=== PATIENT | male | born 1990 | race Caucasian/White ===

== ENCOUNTER 2016-07-15 08:17 | Emergency (ER) | payer OTHER ==
[2016-07-15 08:32] VITALS: BP 114/80
[2016-07-15] MEDS ORDERED: HYDROmorphone 0.5 MG/0.5 ML Syringe IVPUSH ONE ×2 (08:44→10:17)
[2016-07-15] MEDS ORDERED: Ondansetron 4 MG/2 ML SDV IVPUSH ONE (08:44)
[2016-07-15] MEDS ORDERED: Sodium Chloride 0.9% 1,000 ML IV SCH ×2 (08:45→10:30)
--- NOTE | 2016-07-15 08:53 | EDM.PDOC ---
[id number] 07/15/16 08:35 Source: Reports: Patient, Family History Limitations: Reports: No limitations - History of Present Illness INITIAL COMMENTS - FREE TEXT/NARRATIVE: 25-year-old usually healthy male presents with a sudden onset of gastroenteritis symptoms for the last 6 hours. He's had very persistent watery diarrhea and vomiting for the past 6 hours along with intense abdominal cramping. He thought he had some "darker coffee ground" emesis initially but that has resolved and now it is clear. Some radiating pain to the back. No urinary symptoms. He feels lightheaded and "disoriented". He appears to be hyperventilating moderately. He has no surgical history Context: Denies: sick contact, bad/questionable food Associated Symptoms: Reports: back pain, diarrhea, malaise, nausea/vomiting. Denies: chest pain, shoulder pain - Related Data Allergies/ADRs: Allergies Allergy/AdvReac Type Severity Reaction Status Date / Time Penicillins Allergy Anaphylactic Verified 07/15/16 08:33 Shock Home Meds: Home Meds NK [No Known Home Meds] 07/15/16 [History] Past Medical History - Past Health History Medical/Surgical History: Denies Medical/Surgical History Social & Family History - Tobacco Use Smoking Status *Q: Current Some Day Smoker Years of Tobacco use: 12 Packs/Tins Daily: 0.2 - Caffeine Use Caffeine Use: Reports: Coffee, Energy drinks, Soda - Recreational Drug Use Recreational Drug Use: No ED ROS GENERAL - Review of Systems Review Of Systems: See Below Constitutional: Reports: chills, malaise HEENT: Reports: No symptoms Respiratory: Denies: Shortness of Breath Cardiovascular: Denies: Chest pain GI/Abdominal: Reports: Abdominal pain, Diarrhea, Nausea, Vomiting : Reports: no symptoms Skin: Reports: no symptoms Neurological: Reports: Dizziness Psychiatric: Reports: No symptoms ED EXAM, GI/ABD - Physical Exam Exam: See Below Exam Limited By: No limitations General Appearance: alert, anxious, moderate distress (Looks very uncomfortable) Eyes: bilateral: normal appearance (No jaundice) Respiratory/Chest: no respiratory distress, lungs clear Cardiovascular: regular rate, rhythm GI/Abdominal: soft, hypoactive bowel sounds, tenderness (Has some diffuse tenderness to palpation slightly worse in the lower abdomen but no focal tenderness) Extremities: normal inspection Neurological: alert Psychiatric: anxious Skin Exam: Warm, Dry Course - Vital Signs Last Recorded V/S: Last Vital Signs Temp 99.6 F 07/15/16 08:36 Pulse 105 H 07/15/16 08:36 Resp 17 07/15/16 08:36 BP 114/80 07/15/16 08:36 Pulse Ox 99 07/15/16 08:36 - Orders/Labs/Meds Labs: Laboratory Tests 07/15/16 07/15/16 Range/Units 08:53 08:53 WBC 14.4 H (4.5-11.0) K/uL RBC 5.82 (4.30-5.90) M/uL Hgb 17.7 H (12.0-15.0) g/dL Hct 50.6 (40.0-54.0) % MCV 87 (80-98) fL MCH 30 (27-31) pg MCHC 35 (32-36) % Plt Count 192 (150-400) K/uL Neut % (Auto) 91 H (36-66) % Lymph % (Auto) 3 L (24-44) % [place] % (Auto) 5 (2-6) % Eos % (Auto) 0 L (2-4) % Baso % (Auto) 0 (0-1) % Sodium 141 (140-148) mmol/L Potassium 4.4 (3.6-5.2) mmol/L Chloride 103 (100-108) mmol/L Carbon Dioxide 21 (21-32) mmol/L Anion Gap 17.1 H (5.0-14.0) mmol/L BUN 16 (7-18) mg/dL Creatinine 1.3 (0.8-1.3) mg/dL Est Cr Clr Drug Dosing 70.52 mL/min Estimated GFR (MDRD) > 60 (>60) Glucose 121 H (74-106) mg/dL Calcium 9.5 (8.5-10.1) mg/dL Total Bilirubin 1.2 H (0.2-1.0) mg/dL AST 30 (15-37) U/L ALT 30 (12-78) U/L Alkaline Phosphatase 72 (46-116) U/L Total Protein 8.7 H (6.4-8.2) g/dL Albumin 5.0 (3.4-5.0) g/dL Globulin 3.7 H (2.3-3.5) g/dL Albumin/Globulin Ratio 1.4 (1.2-2.2) Amylase 67 (25-115) U/L Lipase 99 (73-393) U/L Meds: Medications Discontinued Medications Generic Name Dose Route Start Last Admin Trade Name Ryq PRN Reason Stop Dose Admin Hydromorphone HCl 0.5 mg 07/15/16 08:44 07/15/16 08:59 Dilaudid IVPUSH 07/15/16 08:45 0.5 mg ONETIME ONE Administration Hydromorphone HCl 0.5 mg 07/15/16 10:17 07/15/16 10:22 Dilaudid IVPUSH 07/15/16 10:18 0.5 mg ONETIME ONE Administration Sodium Chloride 1,000 mls @ 1,000 mls/hr 07/15/16 08:45 07/15/16 08:56 Normal Saline IV 1,000 mls/hr ASDIRECTED LILLI Administration Sodium Chloride 1,000 mls @ 1,000 mls/hr 07/15/16 10:30 07/15/16 10:22 Normal Saline IV 1,000 mls/hr ASDIRECTED LILLI Administration Ondansetron HCl 4 mg 07/15/16 08:44 07/15/16 08:59 Zofran IVPUSH 07/15/16 08:45 4 mg ONETIME ONE Administration - Re-Assessments/Exams Free Text/Narrative Re-Assessment/Exam: 07/15/16 08:53 IV was started, patient was given 1 L normal saline along with 0.5 of Dilaudid 4 mg of Zofran IV. CBC, CMP, amylase and lipase were obtained. His illness pattern fits several other patients we have seen recently. 07/15/16 10:11 Patient had mild to moderate improvement after the medications, nausea resolved but his abdominal cramping persisted. He was given an additional 0.5 mg of Dilaudid and an additional 1 L of normal saline. 07/15/16 11:39 Patient continued to improve. He was discharged in good condition with 5 additional doses of Zofran to use as needed. He can return anytime if worsening or concerns. Departure - Departure Time of Disposition: 11:56 Disposition: Home, Self-Care 01 Condition: good Clinical Impression: Gastroenteritis Instructions: Viral Gastroenteritis, Adult, [id number] Referrals: PCP,None [Primary Care Provider] - Forms: ED Department Discharge Care Plan Goals: Rest today, increase diet slowly as tolerated concentrating on fluids and use Zofran for nausea and vomiting as needed. Return anytime if worsening or concerns.
== END 2016-07-15 11:56 | disposition home or self-care (01) ==
LOC: JP.ED 08:17
DX: K52.9 Noninfective gastroenteritis and colitis, unspecified (principal); F17.210 Nicotine dependence, cigarettes, uncomplicated; Z88.0 Allergy status to penicillin
CPT/HCPCS: 36415; 80053; 82150; 83690; 85025; 96361; 96374; 96375; 96376; 99284; J1170; J2405; J7040

== ENCOUNTER 2018-01-18 12:52 | Emergency (ER) | payer OTHER ==
[2018-01-18 13:16] VITALS: BP 118/79
--- NOTE | 2018-01-18 13:57 | EDM.PDOC ---
ED HPI GENERAL MEDICAL PROBLEM - General Chief Complaint: Respiratory Problem Stated Complaint: COUGHING UP BLOOD Time Seen by Provider: 01/18/18 13:20 Source of Information: Reports: Patient History Limitations: Reports: No Limitations - History of Present Illness INITIAL COMMENTS - FREE TEXT/NARRATIVE: 27 yo male presents with concerns of blood tinged sputum Reports several days of cough, as well as nose bleed yesterday Yesterday noted tinge of blood in his sputum Several more episodes today No clots or gross blood No dyspnea or chest pain No hx of clot or clotting/bleeding disorder Recently had CT for ongoing abdominal pain, 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) Patient had deferred any further work up for this, but reports his PCP warned him to go to the ED if he had any hemoptysis No blood thinner or meds denies Pain Score (Numeric/FACES): 0 - Related Data Allergies Allergy/AdvReac Type Severity Reaction Status Date / Time Penicillins Allergy Anaphylactic Verified 01/18/18 13:03 Shock Home Meds: Home Meds NK [No Known Home Meds] 07/15/16 [History] Past Medical History - Past Health History Medical/Surgical History: Denies Medical/Surgical History Cardiovascular History: Reports: Other (See Below) Other Cardiovascular History: Indent in chest Musculoskeletal History: Reports: Fracture Other Musculoskeletal History: clavicle Dermatologic History: Reports: Eczema - Infectious Disease History Infectious Disease History: Reports: Chicken Pox Social & Family History - Tobacco Use Smoking Status *Q: Current Every Day Smoker Years of Tobacco use: 19 Packs/Tins Daily: 0.5 Used Tobacco, but Quit: No Second Hand Smoke Exposure: No - Caffeine Use Caffeine Use: Reports: Coffee, Energy Drinks, Soda - Alcohol Use Days Per Week of Alcohol Use: 0 - Recreational Drug Use Recreational Drug Use: No ED ROS GENERAL - Review of Systems Review Of Systems: See Below Constitutional: Reports: No Symptoms. Denies: Fever, Chills HEENT: Reports: No Symptoms Respiratory: Reports: Cough, Hemoptysis. Denies: Shortness of Breath, Pleuritic Chest Pain Cardiovascular: Denies: Chest Pain, Dyspnea on Exertion Endocrine: Reports: No Symptoms GI/Abdominal: Denies: Abdominal Pain, Black Stool, Bloody Stool : Reports: No Symptoms Musculoskeletal: Reports: No Symptoms Skin: Reports: No Symptoms Neurological: Denies: Dizziness, Headache Psychiatric: Reports: No Symptoms Hematologic/Lymphatic: Reports: No Symptoms Immunologic: Reports: No Symptoms ED EXAM, GENERAL - Physical Exam Exam: See Below Exam Limited By: No Limitations General Appearance: Alert, WD/WN, No Apparent Distress Eye Exam: Bilateral Eye: PERRL Ears: Normal External Exam Nose: Normal Inspection Throat/Mouth: Normal Inspection Head: Atraumatic, Normocephalic Neck: Supple, Non-Tender Respiratory/Chest: No Respiratory Distress, Lungs Clear, Normal Breath Sounds Cardiovascular: Regular Rate, Rhythm. No: No Edema GI/Abdominal: Normal Bowel Sounds, Soft, Non-Tender Back Exam: Normal Inspection Extremities: Normal Inspection Neurological: Alert, Oriented, CN II-XII Intact Psychiatric: Normal Affect Skin Exam: Warm, Dry Course - Vital Signs Last Recorded V/S: Last Vital Signs Temp 36.4 C 01/18/18 13:14 Pulse 99 01/18/18 13:14 Resp 16 01/18/18 13:14 BP 118/79 01/18/18 13:14 Pulse Ox 99 01/18/18 13:14 - Re-Assessments/Exams Free Text/Narrative Re-Assessment/Exam: 27 yo presents with concerns of blood tinged sputum in setting of several days of viral URI symptoms No large volume hemoptysis, no dyspnea, no chest pain, otherwise feels well Recent reports recent CXR which had no abnormality Symptoms consistent with mucosal irritation in setting of bronchitis and/or 2/2 to his recent epistaxsis Reviewed PCP record, no documentation of conversation regarding hemoptysis I cannot make the connection to his mesenteric abnormality, brief lit search unrevealing Regardless, we have an alternative explanation with his symptoms consistent with resp infection Safe for discharge, asked him to return for worsening. 01/18/18 14:01 Departure - Departure Time of Disposition: 13:51 Disposition: Home, Self-Care 01 Clinical Impression: Blood-tinged sputum - Discharge Information *PRESCRIPTION DRUG MONITORING PROGRAM REVIEWED*: No *COPY OF PRESCRIPTION DRUG MONITORING REPORT IN PATIENT JULIA: No Instructions: Hemoptysis, [id number] Referrals: PCP,None [Primary Care Provider] - Additional Instructions: As discussed, please return for worsening of your symptoms We encourage you to follow up with your primary doctor
== END 2018-01-18 14:25 | disposition home or self-care (01) ==
LOC: JP.ED 12:52
DX: R04.2 Hemoptysis (principal); F17.210 Nicotine dependence, cigarettes, uncomplicated; Z88.0 Allergy status to penicillin
CPT/HCPCS: 99283

== ENCOUNTER 2018-08-07 21:09 | Emergency (ER) | payer OTHER ==
--- NOTE | 2018-08-07 21:39 | EDM.PDOC ---
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 He did do a ekg and he had inverted t waves in the AVR and in v1. He has a hr of 95. He has had pain that he rates at a 3. Onset: Other ( started 2 days ago. ) Duration: Hour(s): Location: Reports: Chest Quality: Reports: Pressure, Other ( pt had a squeezing sensation in his chest. He felt like his heart was rapid. ) Middle Chest Pain Score (Numeric/FACES): 4 - Related Data Allergies Allergy/AdvReac Type Severity Reaction Status Date / Time Cephalosporins Allergy Chest Pain Verified 08/07/18 21:41 Penicillins Allergy Anaphylactic Verified 01/18/18 13:03 Shock Home Meds: Home Meds Clindamycin HCl [Cleocin] 300 mg PO Q8H 08/07/18 [History] Cyclobenzaprine [Flexeril] 10 mg PO Q6H PRN 08/07/18 [History] Past Medical History - Past Health History Medical/Surgical History: Denies Medical/Surgical History Cardiovascular History: Reports: Other (See Below) Other Cardiovascular History: Indent in chest Musculoskeletal History: Reports: Fracture Other Musculoskeletal History: clavicle Dermatologic History: Reports: Eczema - Infectious Disease History Infectious Disease History: Reports: Chicken Pox Social & Family History - Caffeine Use Caffeine Use: Reports: Coffee, Energy Drinks, Soda ED ROS GENERAL - Review of Systems Review Of Systems: See Below Constitutional: Reports: No Symptoms HEENT: Reports: Other (pt had a previous strept infection. He has a reoccurence at this time. He is on clindomycin. He has been drinking fluids well. He developed some chest pain and was concered about that tonight. He did an ekg. He had a rapid heat beat and some changes that were concerning. ) Respiratory: Reports: No Symptoms Cardiovascular: Reports: Chest Pain, Other (pt does not have chest wall tenderness. ) Endocrine: Reports: No Symptoms GI/Abdominal: Reports: No Symptoms : Reports: No Symptoms Musculoskeletal: Reports: No Symptoms Skin: Reports: No Symptoms ED EXAM, GENERAL - Physical Exam Exam: See Below Free Text/Narrative:: pt arrived with chest pain he rated at a 4-5. He did not feel sob and this did not get worse when he took a deep breath. Exam Limited By: No Limitations General Appearance: Alert, Anxious, Moderate Distress Ears: Normal TMs Nose: Normal Inspection Throat/Mouth: Normal Inspection Head: Atraumatic Neck: Normal Inspection Respiratory/Chest: No Respiratory Distress Cardiovascular: Regular Rate, Rhythm, Tachycardia, Other (pt has a heart rate of 130 when he gets up and moves around. ) GI/Abdominal: Soft, Non-Tender (Male) Exam: Deferred Rectal (Males) Exam: Deferred Back Exam: Normal Inspection Extremities: Normal Inspection Neurological: Alert, Oriented, Normal Cognition Psychiatric: Normal Affect Course - Vital Signs Last Recorded V/S: Last Vital Signs Temp 36.6 C 08/07/18 21:56 Pulse 65 08/08/18 00:20 Resp 14 08/08/18 00:20 BP 128/74 08/08/18 00:20 Pulse Ox 99 08/08/18 00:20 - Orders/Labs/Meds Labs: Laboratory Tests 08/07/18 08/07/18 08/07/18 Range/Units 21:25 21:25 21:25 WBC 5.2 (4.5-11.0) K/uL RBC 5.10 (4.30-5.90) M/uL Hgb 15.4 H D (12.0-15.0) g/dL Hct 45.1 (40.0-54.0) % MCV 88 (80-98) fL MCH 30 (27-31) pg MCHC 34 (32-36) % Plt Count 182 (150-400) K/uL Neut % (Auto) 48 (36-66) % Lymph % (Auto) 37 (24-44) % [place] % (Auto) 11 H (2-6) % Eos % (Auto) 0 L (2-4) % Baso % (Auto) 3 H (0-1) % Sodium 140 (140-148) mmol/L Potassium 3.6 (3.6-5.2) mmol/L Chloride 101 (100-108) mmol/L Carbon Dioxide 28 (21-32) mmol/L Anion Gap 11.1 (5.0-14.0) mmol/L BUN 11 (7-18) mg/dL Creatinine 1.1 (0.8-1.3) mg/dL Est Cr Clr Drug Dosing 86.97 mL/min Estimated GFR (MDRD) > 60 (>60) Glucose 109 H (74-106) mg/dL Lactic Acid (0.4-2.0) mmol/L Calcium 9.1 (8.5-10.1) mg/dL Total Bilirubin 0.6 (0.2-1.0) mg/dL AST 21 (15-37) U/L ALT 18 (12-78) U/L Alkaline Phosphatase 58 (46-116) U/L Troponin I < 0.017 (0.000-0.056) ng/mL Total Protein 7.7 (6.4-8.2) g/dL Albumin 3.9 (3.4-5.0) g/dL Globulin 3.8 H (2.3-3.5) g/dL Albumin/Globulin Ratio 1.0 L (1.2-2.2) TSH, Ultra Sensitive (0.358-3.740) uIU/mL Monoscreen (NEGATIVE) 08/07/18 08/07/18 08/07/18 Range/Units 21:55 23:11 23:11 WBC (4.5-11.0) K/uL RBC (4.30-5.90) M/uL Hgb (12.0-15.0) g/dL Hct (40.0-54.0) % MCV (80-98) fL MCH (27-31) pg MCHC (32-36) % Plt Count (150-400) K/uL Neut % (Auto) (36-66) % Lymph % (Auto) (24-44) % [place] % (Auto) (2-6) % Eos % (Auto) (2-4) % Baso % (Auto) (0-1) % Sodium (140-148) mmol/L Potassium (3.6-5.2) mmol/L Chloride (100-108) mmol/L Carbon Dioxide (21-32) mmol/L Anion Gap (5.0-14.0) mmol/L BUN (7-18) mg/dL Creatinine (0.8-1.3) mg/dL Est Cr Clr Drug Dosing mL/min Estimated GFR (MDRD) (>60) Glucose (74-106) mg/dL Lactic Acid 1.0 (0.4-2.0) mmol/L Calcium (8.5-10.1) mg/dL Total Bilirubin (0.2-1.0) mg/dL AST (15-37) U/L ALT (12-78) U/L Alkaline Phosphatase (46-116) U/L Troponin I (0.000-0.056) ng/mL Total Protein (6.4-8.2) g/dL Albumin (3.4-5.0) g/dL Globulin (2.3-3.5) g/dL Albumin/Globulin Ratio (1.2-2.2) TSH, Ultra Sensitive 1.640 (0.358-3.740) uIU/mL Monoscreen Negative (NEGATIVE) Meds: Medications Discontinued Medications Generic Name Dose Route Start Last Admin Trade Name Freq PRN Reason Stop Dose Admin Sodium Chloride 1,000 mls @ 999 mls/hr 08/07/18 23:00 08/07/18 23:02 Normal Saline IV 999 mls/hr ASDIRECTED LILLI Administration Ketorolac Tromethamine 30 mg 08/07/18 22:55 08/07/18 23:06 Toradol IVPUSH 08/07/18 22:56 30 mg ONETIME ONE Administration Ondansetron HCl 4 mg 08/07/18 23:16 08/07/18 23:20 Zofran IVPUSH 08/07/18 23:17 4 mg ONETIME ONE Administration - Re-Assessments/Exams Free Text/Narrative Re-Assessment/Exam: 08/08/18 00:35 pt had a ekg which showed a fasicular block. His rate was in the 90s. His trop was normal, tsh was normal labs looked like he was on the dry side. When he moved around his pulse did go up. Pt was given a liter of fluid and his pulse has come down and he is more comfortable. Departure - Departure Time of Disposition: 00:46 Disposition: Home, Self-Care 01 Condition: Fair Clinical Impression: Dehydration, Atypical chest pain Instructions: Nonspecific Chest Pain, [id number], Dehydration, Adult Referrals: PCP,None [Primary Care Provider] - Forms: ED Department Discharge Care Plan Goals: low activity for the next 2 days. , push fluids, tylenol and motrin for pain, rtc if the chest pain should get alot worse.
--- NOTE | 2018-08-07 22:31 | CRLCR ---
INDICATION: Chest pain TECHNIQUE: Chest radiograph 1 view COMPARISON: 01/25/2019 FINDINGS: Mediastinum: The mediastinum is normal in appearance. The heart silhouette is normal in size and morphology. Lung: Both lungs are unremarkable in appearance. No sign of pleural effusion seen. No pneumothorax is identified. Musculoskeletal: Unremarkable for age. IMPRESSION: 1. No acute cardiopulmonary disease is seen. Dictated by: Ruel Hammer MD @ 08/07/2018 22:29:37 (Electronically Signed)
[2018-08-07] MEDS ORDERED: Ketorolac 30 MG/ML SDV IVPUSH ONE (22:55)
[2018-08-07] MEDS ORDERED: Sodium Chloride 0.9% 1,000 ML IV SCH (23:00)
[2018-08-07] MEDS ORDERED: Ondansetron 4 MG/2 ML SDV IVPUSH ONE (23:16)
[2018-08-08 00:43] VITALS: BP 128/74
== END 2018-08-08 00:56 | disposition home or self-care (01) ==
LOC: JP.ED 21:09
DX: R07.89 Other chest pain (principal); I44.4 Left anterior fascicular block; E86.0 Dehydration; J02.0 Streptococcal pharyngitis; Z88.1 Allergy status to other antibiotic agents; Z88.0 Allergy status to penicillin; Z79.2 Long term (current) use of antibiotics
CPT/HCPCS: 36415; 71045; 80053; 83605; 84443; 84484; 85025; 86308; 93005; 96361; 96374; 96375; 99285; J1885; J2405; J7030

== ENCOUNTER 2019-02-18 19:17 | Emergency (ER) | payer OTHER ==
[2019-02-18 19:46] VITALS: BP 129/83; PULSE 83
--- NOTE | 2019-02-18 21:33 | EDM.PDOC ---
ED HPI GENERAL MEDICAL PROBLEM - General Chief Complaint: General Stated Complaint: FAST HEART RATE, DIZZY, LIGHT HEADED Time Seen by Provider: 02/18/19 19:50 Source of Information: Reports: Patient History Limitations: Reports: No Limitations - History of Present Illness INITIAL COMMENTS - FREE TEXT/NARRATIVE: pt arrived stating that he was driving from [place] and talking to a friend. He then developed visual symptoms and he felt like he could not focus. . He had tingling in all extremities but definitely worse in the lower extremities. Onset: Today, Sudden, Other (pt was driving from [place]. ) Duration: Hour(s):, Getting Worse Location: Reports: Head, Face, Other ( affectedall extremities at the time with the tingling. ) Associated Symptoms: Reports: Weakness, Other (pt felt like he was flying through the air. ) - Related Data Allergies Allergy/AdvReac Type Severity Reaction Status Date / Time Cephalosporins Allergy Chest Pain Verified 08/07/18 21:41 Penicillins Allergy Anaphylactic Verified 01/18/18 13:03 Shock Past Medical History - Past Health History Medical/Surgical History: Denies Medical/Surgical History Cardiovascular History: Reports: Other (See Below) Other Cardiovascular History: Indent in chest Musculoskeletal History: Reports: Fracture Other Musculoskeletal History: clavicle Dermatologic History: Reports: Eczema - Infectious Disease History Infectious Disease History: Reports: Chicken Pox Social & Family History - Tobacco Use Smoking Status *Q: Current Every Day Smoker Years of Tobacco use: 20 Packs/Tins Daily: 0.2 - Caffeine Use Caffeine Use: Reports: Coffee, Soda Caffeine Use Comment: 4-5 cups of coffee per day - Recreational Drug Use Recreational Drug Use: No ED ROS GENERAL - Review of Systems Review Of Systems: See Below Constitutional: Reports: No Symptoms HEENT: Reports: Vision Change Respiratory: Reports: No Symptoms Cardiovascular: Reports: No Symptoms Endocrine: Reports: No Symptoms GI/Abdominal: Reports: No Symptoms : Reports: No Symptoms Musculoskeletal: Reports: No Symptoms Skin: Reports: No Symptoms ED EXAM, GENERAL - Physical Exam Exam: See Below Free Text/Narrative:: pt was driving and developed visual blurring, pressure in his head. He felt like he was flying through the air. He is tingling in his lower extremities. On arrival he still had the tingling. He is under stress but he does not feel that it is more than usual. Exam Limited By: No Limitations General Appearance: Alert, Anxious, Moderate Distress, Other (pupils equal and reactive. ) Ears: Normal TMs Nose: Normal Inspection Throat/Mouth: Normal Inspection Head: Atraumatic Neck: Normal Inspection Respiratory/Chest: No Respiratory Distress Cardiovascular: Regular Rate, Rhythm GI/Abdominal: Soft, Non-Tender (Male) Exam: Deferred Rectal (Males) Exam: Deferred Back Exam: Normal Inspection Extremities: Normal Inspection Neurological: Alert, Oriented, Normal Cognition Psychiatric: Normal Affect Course - Vital Signs Last Recorded V/S: Last Vital Signs Temp 36.6 C 02/18/19 20:05 Pulse 83 02/18/19 20:05 Resp 14 02/18/19 20:05 BP 129/83 02/18/19 20:05 Pulse Ox 98 02/18/19 20:05 - Orders/Labs/Meds Labs: Laboratory Tests 02/18/19 02/18/19 02/18/19 Range/Units 19:49 19:50 19:50 WBC 6.2 (4.5-11.0) K/uL RBC 4.95 (4.30-5.90) M/uL Hgb 15.5 H (12.0-15.0) g/dL Hct 44.6 (40.0-54.0) % MCV 90 (80-98) fL MCH 31 (27-31) pg MCHC 35 (32-36) % Plt Count 179 (150-400) K/uL Neut % (Auto) 62 (36-66) % Lymph % (Auto) 29 (24-44) % [place] % (Auto) 8 H (2-6) % Eos % (Auto) 1 L (2-4) % Baso % (Auto) 1 (0-1) % Sodium (140-148) mmol/L Potassium (3.6-5.2) mmol/L Chloride (100-108) mmol/L Carbon Dioxide (21-32) mmol/L Anion Gap (5.0-14.0) mmol/L BUN (7-18) mg/dL Creatinine (0.8-1.3) mg/dL Est Cr Clr Drug Dosing mL/min Estimated GFR (MDRD) (>60) Glucose (74-106) mg/dL Calcium (8.5-10.1) mg/dL Total Bilirubin (0.2-1.0) mg/dL AST (15-37) U/L ALT (12-78) U/L Alkaline Phosphatase (46-116) U/L Total Protein (6.4-8.2) g/dL Albumin (3.4-5.0) g/dL Globulin (2.3-3.5) g/dL Albumin/Globulin Ratio (1.2-2.2) TSH, Ultra Sensitive 3.501 (0.358-3.740) uIU/mL Urine Color Yellow (YELLOW) Urine Appearance Clear (CLEAR) Urine pH 7.0 (5.0-8.0) Ur Specific [place] 1.020 (1.008-1.030) Urine Protein Negative (NEGATIVE) mg/dL Urine Glucose (UA) Negative (NEGATIVE) mg/dL Urine Ketones Negative (NEGATIVE) mg/dL Urine Occult Blood Negative (NEGATIVE) Urine Nitrite Negative (NEGATIVE) Urine Bilirubin Negative (NEGATIVE) Urine Urobilinogen 0.2 (0.2-1.0) EU/dL Ur Leukocyte Esterase Negative (NEGATIVE) Urine RBC Not seen (0-5) Urine WBC Not seen (0-5) Ur Epithelial Cells Rare Amorphous Sediment Few Urine Bacteria Not seen Urine Mucus Not seen 02/18/19 Range/Units 19:50 WBC (4.5-11.0) K/uL RBC (4.30-5.90) M/uL Hgb (12.0-15.0) g/dL Hct (40.0-54.0) % MCV (80-98) fL MCH (27-31) pg MCHC (32-36) % Plt Count (150-400) K/uL Neut % (Auto) (36-66) % Lymph % (Auto) (24-44) % [place] % (Auto) (2-6) % Eos % (Auto) (2-4) % Baso % (Auto) (0-1) % Sodium 141 (140-148) mmol/L Potassium 3.6 (3.6-5.2) mmol/L Chloride 103 (100-108) mmol/L Carbon Dioxide 26 (21-32) mmol/L Anion Gap 11.7 (5.0-14.0) mmol/L BUN 10 (7-18) mg/dL Creatinine 1.1 (0.8-1.3) mg/dL Est Cr Clr Drug Dosing 86.47 mL/min Estimated GFR (MDRD) > 60 (>60) Glucose 92 (74-106) mg/dL Calcium 9.2 (8.5-10.1) mg/dL Total Bilirubin 0.4 (0.2-1.0) mg/dL AST 21 (15-37) U/L ALT 20 (12-78) U/L Alkaline Phosphatase 63 (46-116) U/L Total Protein 7.4 (6.4-8.2) g/dL Albumin 4.3 (3.4-5.0) g/dL Globulin 3.1 (2.3-3.5) g/dL Albumin/Globulin Ratio 1.4 (1.2-2.2) TSH, Ultra Sensitive (0.358-3.740) uIU/mL Urine Color (YELLOW) Urine Appearance (CLEAR) Urine pH (5.0-8.0) Ur Specific [place] (1.008-1.030) Urine Protein (NEGATIVE) mg/dL Urine Glucose (UA) (NEGATIVE) mg/dL Urine Ketones (NEGATIVE) mg/dL Urine Occult Blood (NEGATIVE) Urine Nitrite (NEGATIVE) Urine Bilirubin (NEGATIVE) Urine Urobilinogen (0.2-1.0) EU/dL Ur Leukocyte Esterase (NEGATIVE) Urine RBC (0-5) Urine WBC (0-5) Ur Epithelial Cells Amorphous Sediment Urine Bacteria Urine Mucus - Re-Assessments/Exams Free Text/Narrative Re-Assessment/Exam: 02/24/19 07:13 pt gradually improved. His ekg was unchanged. He had normal lab work. He has labs pending at the clinic. He needs to continue to follow with Dr Calhoun. He may need a neurology consult. He already is set up for a edrocrinoly appt. He Has had some very low bs. His sugar today is 90. Pt has just had a normal cat scan of the head. If some of the symptoms persist he may need a Mri 02/24/19 07:15 Departure - Departure Time of Disposition: 21:31 Disposition: Home, Self-Care 01 Condition: Fair Clinical Impression: History of hypoglycemia, Visual changes - Discharge Information Instructions: Visual Disturbances Referrals: PCP,None [Primary Care Provider] - Forms: ED Department Discharge Care Plan Goals: continue to follow up with Dr Mcclure, consider neurolgy consult, keep appt for endrocrinoly consult.
== END 2019-02-18 21:48 | disposition home or self-care (01) ==
LOC: JP.ED 19:17
DX: H53.9 Unspecified visual disturbance (principal); F17.210 Nicotine dependence, cigarettes, uncomplicated; Z86.39 Personal history of other endocrine, nutritional and metabolic disease; Z88.1 Allergy status to other antibiotic agents; Z88.0 Allergy status to penicillin
CPT/HCPCS: 36415; 80053; 81001; 84443; 85025; 93005; 99284-25

== ENCOUNTER 2019-05-03 17:45 | Emergency (ER) | payer BC, OTHER ==
[2019-05-03 17:58] VITALS: BP 117/72; PULSE 64
--- NOTE | 2019-05-03 18:12 | EDM.PDOC ---
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 Here for evaluation. Last tetanus 10 yrs ago. Has a little numbness distal to the wound. 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: Other (see below) (none) - Related Data Allergies Allergy/AdvReac Type Severity Reaction Status Date / Time Cephalosporins Allergy Chest Pain Verified 05/03/19 18:07 Penicillins Allergy Anaphylactic Verified 05/03/19 18:07 Shock Home Meds: Home Meds NK [No Known Home Meds] 05/03/19 [History] Past Medical History - Past Health History Medical/Surgical History: Denies Medical/Surgical History Cardiovascular History: Reports: Other (See Below) Other Cardiovascular History: Indent in chest Musculoskeletal History: Reports: Fracture Other Musculoskeletal History: clavicle Dermatologic History: Reports: Eczema - Infectious Disease History Infectious Disease History: Reports: Chicken Pox Social & Family History - Caffeine Use Caffeine Use: Reports: Coffee, Soda Caffeine Use Comment: 4-5 cups of coffee per day ED ROS GENERAL - Review of Systems Review Of Systems: See Below Constitutional: Reports: No Symptoms Skin: Reports: Wound (R hand) Neurological: Reports: Numbness (just distal to the laceration. ) ED EXAM, SKIN/RASH Exam: See Below Exam Limited By: No Limitations General Appearance: Alert, WD/WN, No Apparent Distress Extremities: Normal Inspection, Normal Range of Motion, Non-Tender, No Pedal Edema Neurological: Alert, Oriented, CN II-XII Intact, Normal Cognition, No Motor/ Sensory Deficits Psychiatric: Normal Affect, Normal Mood Skin: Warm, Dry, Normal Color, No Rash, Wound/Incision (1.7 cm linear over the R MC jt. ) Location, Skin: Upper Extremity, Right Characteristics: Linear Associated features: Tenderness. No: Warmth, Induration, Lymphangitis, Inflammation ED SKIN PROCEDURES - Laceration/Wound Repair Right Hand Appearance: Subcutaneous, Linear, Mildly Contaminated, Other (wound over the MC joint of the R index finger. ) Distal NVT: No Tendon Injury, Other (subjective numbness of the medial index finger) Anesthetic Type: Local Local Anesthesia - Lidocaine (Xylocaine): 1% Plain Local Anesthetic Volume: 2cc Skin Prep: Saline, Other (Griselda dish soap to remove grease) Exploration/Debridement/Repair: Wound Explored Closed with: Sutures Lac/Wound length In cm: 1.5 Suture Size: 5-0 # of Sutures: 3 Suture Type: Nylon, Interrupted, Simple, Mattress (one vertical mattress) Drain Placement: No Sterile Dressing Applied: Nurse Tetanus Status Addressed: Yes Complications: No Course - Vital Signs Last Recorded V/S: Last Vital Signs Temp 36.0 C 05/03/19 18:13 Pulse 64 05/03/19 18:13 Resp 16 05/03/19 18:13 BP 117/72 05/03/19 18:13 Pulse Ox 98 05/03/19 18:13 - Orders/Labs/Meds Orders: Active Orders 24 hr Category Date Time Status Vaccines to be Administered [RC] PER UNIT ROUTINE Care 05/03/19 18:30 Ordered Diphth,Pertuss(Acell),Tet Vac [Adacel] Med 05/03/19 18:30 Once 0.5 ml IM .ONCE ONE Meds: Medications Discontinued Medications Generic Name Dose Route Start Last Admin Trade Name Ryq PRN Reason Stop Dose Admin Lidocaine HCl 5 ml 05/03/19 18:06 Xylocaine-Mpf 1% INJECT 05/03/19 18:07 ONETIME ONE Departure - Departure Time of Disposition: 18:35 Disposition: Home, Self-Care 01 Condition: Good Clinical Impression: Laceration of right hand Qualifiers: Encounter type: initial encounter Foreign body presence: without foreign body Qualified Code(s): S61.411A - Laceration without foreign body of right hand, initial encounter - Discharge Information *PRESCRIPTION DRUG MONITORING PROGRAM REVIEWED*: No *COPY OF PRESCRIPTION DRUG MONITORING REPORT IN PATIENT JULIA: No Instructions: Sutured Wound Care, [id number] Referrals: PCP,None [Primary Care Provider] - Forms: ED Department Discharge Additional Instructions: Clean wound with soap and water twice daily. Dry. Apply Bacitracin ointment and a new dressing. Recheck for signs of infection. Stitches out in about 9 days. Acetaminophen as needed for pain relief. Sepsis Event Note - Focused Exam Vital Signs: Vital Signs Temp Pulse Resp BP Pulse Ox 05/03/19 18:13 36.0 C 64 16 117/72 98 05/03/19 17:57 36.0 C 64 16 117/72 98 Date Exam was Performed: 05/03/19 Time Exam was Performed: 18:30 - My Orders Last 24 Hours: My Active Orders 05/03/19 18:30 Vaccines to be Administered [RC] PER UNIT ROUTINE Diphth,Pertuss(Acell),Tet Vac [Adacel] 0.5 ml IM .ONCE ONE - Assessment/Plan Last 24 Hours: My Active Orders 05/03/19 18:30 Vaccines to be Administered [RC] PER UNIT ROUTINE Diphth,Pertuss(Acell),Tet Vac [Adacel] 0.5 ml IM .ONCE ONE
[2019-05-03] MEDS ORDERED: Diphtheria,Pertussis(Acell),Tetanus Vaccine 0.5 ML SDV IM ONE (18:30)
[2019-05-03] MEDS ORDERED: Diphtheria,Pertussis(Acell),Tetanus Vaccine 0.5 ML SDV ONE (18:31)
== END 2019-05-03 18:45 | disposition home or self-care (01) ==
LOC: JP.ED 17:45
DX: S61.411A Laceration without foreign body of right hand, initial encounter (principal); Z23 Encounter for immunization; Z88.0 Allergy status to penicillin; Z88.1 Allergy status to other antibiotic agents; W26.8XXA Contact with other sharp object(s), not elsewhere classified, initial encounter
CPT/HCPCS: 12001; 90471; 90715; 99282; J2001

== ENCOUNTER 2019-09-26 13:11 | Emergency (ER) | payer BC ==
[2019-09-26 13:34] VITALS: BP 124/81; PULSE 82
--- NOTE | 2019-09-26 13:55 | EDM.PDOC ---
ED HPI GENERAL MEDICAL PROBLEM - General Chief Complaint: Respiratory Problem Stated Complaint: SOB, PRESSURE IN ABDOMEN Time Seen by Provider: 09/26/19 13:40 Source of Information: Reports: Patient History Limitations: Reports: No Limitations - History of Present Illness INITIAL COMMENTS - FREE TEXT/NARRATIVE: 28-year-old male with a known history of pectus excavatum, also irritable bowel syndrome presents with 1 to 2 months of intermittent chest pressure, unable to take a full breath, and upper abdominal pressure and fullness. No fevers or chills, no weight loss. Denies nausea or vomiting. He went into the clinic to talk about his symptoms and they sent him to the emergency room. He appears comfortable and is relatively asymptomatic at this time. Onset: Unknown/Unsure (Symptoms have been ongoing for several months) Associated Symptoms: Reports: Chest Pain (Intermittent chest pressure, not pain) , Weakness (Has been developing sudden onset of weakness in his arms and legs which lasts 5 to 10 minutes then resolves). Denies: Confusion, Nausea/Vomiting , Shortness of Breath (Not short of breath but feels like he cannot take a full breath) chest and upper abdomen Pain Score (Numeric/FACES): 4 - Related Data Allergies Allergy/AdvReac Type Severity Reaction Status Date / Time Penicillins Allergy Severe Anaphylactic Verified 09/26/19 13:33 Shock Cephalosporins Allergy Chest Pain Verified 09/26/19 13:33 Home Meds: Home Meds NK [No Known Home Meds] 05/03/19 [History] Past Medical History - Past Health History Medical/Surgical History: Denies Medical/Surgical History HEENT History: Reports: None Cardiovascular History: Reports: Other (See Below) Other Cardiovascular History: Indent in chest Respiratory History: Reports: None Gastrointestinal History: Reports: Irritable Bowel Syndrome Genitourinary History: Reports: None Musculoskeletal History: Reports: Fracture Other Musculoskeletal History: clavicle Dermatologic History: Reports: Eczema - Infectious Disease History Infectious Disease History: Reports: Chicken Pox Social & Family History - Tobacco Use Smoking Status *Q: Current Every Day Smoker Years of Tobacco use: 15 Packs/Tins Daily: 0.2 - Caffeine Use Caffeine Use: Reports: Coffee, Soda Caffeine Use Comment: 4-5 cups of coffee per day - Recreational Drug Use Recreational Drug Use: No ED ROS GENERAL - Review of Systems Review Of Systems: See Below Constitutional: Reports: Malaise. Denies: Fever, Chills HEENT: Reports: No Symptoms Respiratory: Reports: Other (As described in HPI) Cardiovascular: Reports: Other (As described in HPI) GI/Abdominal: Reports: Other (Upper abdominal pressure, early satiety) : Reports: No Symptoms Musculoskeletal: Reports: Other (Intermittent weakness of the extremities, no pain) Skin: Reports: No Symptoms Neurological: Denies: Dizziness, Headache, Syncope ED EXAM, GENERAL - Physical Exam Exam: See Below Exam Limited By: No Limitations General Appearance: Alert, No Apparent Distress Eye Exam: Bilateral Eye: Normal Inspection Head: Atraumatic Respiratory/Chest: No Respiratory Distress, Lungs Clear Cardiovascular: Regular Rate, Rhythm. No: Extra Beats GI/Abdominal: Soft, Other (Reacts with some tenderness across the upper abdomen and right lower quadrant, no guarding or focal rebound tenderness) Psychiatric: Normal Affect, Normal Mood Skin Exam: Warm, Dry Course - Vital Signs Last Recorded V/S: Last Vital Signs Temp 98.4 F 09/26/19 13:32 Pulse 82 09/26/19 13:32 Resp 16 09/26/19 13:32 BP 124/81 09/26/19 13:32 Pulse Ox 97 09/26/19 13:32 - Orders/Labs/Meds Orders: Active Orders 24 hr Category Date Time Status Chest 2V [CR] Routine Exams 09/26/19 13:50 Taken Labs: Laboratory Tests 09/26/19 09/26/19 Range/Units 14:01 14:01 WBC 5.1 (4.5-11.0) K/uL RBC 5.03 (4.30-5.90) M/uL Hgb 15.3 H (12.0-15.0) g/dL Hct 44.9 (40.0-54.0) % MCV 89 (80-98) fL MCH 30 (27-31) pg MCHC 34 (32-36) % Plt Count 206 (150-400) K/uL Neut % (Auto) 66 (36-66) % Lymph % (Auto) 24 (24-44) % [place] % (Auto) 9 H (2-6) % Eos % (Auto) 1 L (2-4) % Baso % (Auto) 0 (0-1) % Sodium 142 (140-148) mmol/L Potassium 3.8 (3.6-5.2) mmol/L Chloride 105 (100-108) mmol/L Carbon Dioxide 28 (21-32) mmol/L Anion Gap 8.8 (5.0-14.0) mmol/L BUN 14 (7-18) mg/dL Creatinine 1.1 (0.8-1.3) mg/dL Est Cr Clr Drug Dosing 87.45 mL/min Estimated GFR (MDRD) > 60 (>60) Glucose 70 L (74-106) mg/dL Calcium 8.9 (8.5-10.1) mg/dL - Re-Assessments/Exams Free Text/Narrative Re-Assessment/Exam: 09/26/19 13:55 2 view chest x-ray, CBC and BMP were obtained. 09/26/19 14:49 Labs are normal, 2 view chest x-ray is clear. Patient was reassured, follow-up with his primary care may be worthwhile because of his significant pectus excavatum which may be contributing to his symptoms. Departure - Departure Time of Disposition: 15:01 Disposition: Home, Self-Care 01 Clinical Impression: Dyspnea Qualifiers: Dyspnea type: unspecified Qualified Code(s): R06.00 - Dyspnea, unspecified - Discharge Information Instructions: Shortness of Breath, Adult, [id number] Referrals: PCP,None [Primary Care Provider] - Forms: ED Department Discharge Care Plan Goals: Consider follow-up with your primary care provider to discuss echocardiography or further evaluation. No acute treatment needed at this time. Continue activity as tolerated. Sepsis Event Note - Evaluation Sepsis Screening Result: No Definite Risk - Focused Exam Vital Signs: Vital Signs Temp Pulse Resp BP Pulse Ox 09/26/19 13:32 98.4 F 82 16 124/81 97 Date Exam was Performed: 09/26/19 Time Exam was Performed: 18:02 - My Orders Last 24 Hours: My Active Orders 09/26/19 13:50 Chest 2V [CR] Routine - Assessment/Plan Last 24 Hours: My Active Orders 09/26/19 13:50 Chest 2V [CR] Routine
--- NOTE | 2019-09-28 09:17 | CR ---
CHEST: 2 view CLINICAL HISTORY:Dyspnea COMPARISON:2019 FINDINGS: The heart size, pulmonary vascularity and hilar structures are normal. No infiltrate effusion or pneumothorax is seen. There is a moderate pectus excavatum IMPRESSION: No acute cardiopulmonary process.
== END 2019-09-26 15:01 | disposition home or self-care (01) ==
LOC: JP.ED 13:11
DX: R06.00 Dyspnea, unspecified (principal); F17.210 Nicotine dependence, cigarettes, uncomplicated; Z88.1 Allergy status to other antibiotic agents; Z88.0 Allergy status to penicillin
CPT/HCPCS: 36415; 71046; 71046-26; 80048; 85025; 99285-25

== ENCOUNTER 2019-11-17 02:19 | Emergency (ER) | payer SELFPAY ==
[2019-11-17 02:55] VITALS: BP 130/81; PULSE 90
--- NOTE | 2019-11-17 03:34 | EDM.PDOC ---
ED HPI GENERAL MEDICAL PROBLEM - General Chief Complaint: Body Fluid Exposure Stated Complaint: WORK INJURY Time Seen by Provider: 11/17/19 03:00 Source of Information: Reports: Patient, RN History Limitations: Reports: No Limitations - History of Present Illness INITIAL COMMENTS - FREE TEXT/NARRATIVE: Ramirez is a 28 yo male that presents to the ED for evaluation after a blood ex posure from a patient that they brought in after a trauma. 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 He does have superficially open skin between his fingernail and DIP joint. He did wash the area with soap and water once he noticed the exposure, while in the ED. Ramirez also had left shoulder pain that occurred as he and his partner were unloading the patient from the ambulance upon arrival to ED. The cot did not unload properly and he caught the weight of the patient/cot with his left arm (the cot dropped lower than it should have and jerked Ramirez's left arm towards the ground. Initially the pain was 8-9/10 along the trapezius muscle from the neck that radiated subscapularly to and down his left lateral side. He describes the pain as a burning, sharp, and stinging. The pain eased to 4/10 after a matter of seconds. Joshua has completed a Heb B vaccination series and his last Tdap was Apr 2019. Onset: Today, Sudden Onset Date: 11/17/19 Onset Time: 01:48 Duration: Constant Location: Reports: Upper Extremity, Left Quality: Reports: Burning, Sharp, Other (stinging) Severity: Moderate Improves with: Reports: Immobilization Worsens with: Reports: Movement Associated Symptoms: Reports: No Other Symptoms Left Shoulder Pain Score (Numeric/FACES): 4 - Related Data Allergies Allergy/AdvReac Type Severity Reaction Status Date / Time Penicillins Allergy Severe Anaphylactic Verified 11/17/19 02:48 Shock Cephalosporins Allergy Chest Pain Verified 11/17/19 02:48 Home Meds: Home Meds NK [No Known Home Meds] 05/03/19 [History] Past Medical History - Past Health History Medical/Surgical History: Denies Medical/Surgical History HEENT History: Reports: None Cardiovascular History: Reports: Other (See Below) Other Cardiovascular History: palpitations, on heart monitor Respiratory History: Reports: Bronchitis, Recurrent Gastrointestinal History: Reports: Irritable Bowel Syndrome Genitourinary History: Reports: None Musculoskeletal History: Reports: Fracture Other Musculoskeletal History: clavicle Neurological History: Reports: Concussion, Migraines Dermatologic History: Reports: Eczema - Infectious Disease History Infectious Disease History: Reports: Chicken Pox - Past Surgical History GI Surgical History: Reports: Colonoscopy Social & Family History - Family History Family Medical History: Noncontributory - Tobacco Use Smoking Status *Q: Current Every Day Smoker Years of Tobacco use: 20 Packs/Tins Daily: 0.7 - Caffeine Use Caffeine Use: Reports: None Caffeine Use Comment: 4-5 cups of coffee per day - Recreational Drug Use Recreational Drug Use: No ED ROS GENERAL - Review of Systems Review Of Systems: See Below Constitutional: Reports: No Symptoms HEENT: Reports: No Symptoms Respiratory: Reports: No Symptoms Cardiovascular: Reports: No Symptoms Endocrine: Reports: No Symptoms GI/Abdominal: Reports: No Symptoms : Reports: No Symptoms Musculoskeletal: Reports: No Symptoms, Shoulder Pain (left) Skin: Reports: No Symptoms Neurological: Reports: No Symptoms ED EXAM, GENERAL - Physical Exam Exam: See Below Exam Limited By: No Limitations General Appearance: Alert, WD/WN, No Apparent Distress Respiratory/Chest: No Respiratory Distress, Normal Breath Sounds Peripheral Pulses: 2+: Radial (L) GI/Abdominal: Soft, Non-Tender Back Exam: Normal Inspection, Full Range of Motion, Muscle Spasm (left trapezius muscle- under and around the scapula to left lateral side). No: Decreased Range of Motion, Paraspinal Tenderness, Vertebral Tenderness Extremities: Normal Inspection, Normal Range of Motion (able to perform full active ROM of left shoulder joint. ), Normal Capillary Refill, Other (no tenderness over clavicle, AC joint, or along anterior glenohumeral joint. mild pain with palpation of posterior left neck/ trapezius muscle that extends to scapular region. pain is worse around and under scapula and it radiates to left lateral side. With AROM, patient is able to perform abduction, adduction, flexion, extension, and internal/ external rotation with internal rotation/ back scratch test producing the worst pain (moderate). ). No: Joint Swelling Neurological: Alert, Oriented Skin Exam: Warm, Dry, Wound/Incision (5 mm scratch to right 5th digit between fingernail and DIP joint) Lymphatic: No Adenopathy Course - Vital Signs Last Recorded V/S: Last Vital Signs Temp 98.4 F 11/17/19 02:53 Pulse 90 11/17/19 02:53 Resp 16 11/17/19 02:53 BP 130/81 11/17/19 02:53 Pulse Ox 96 11/17/19 02:53 - Orders/Labs/Meds Orders: Active Orders 24 hr Category Date Time Status HBSAG SCREEN Stat Lab 11/17/19 02:43 Ordered HCV ANTIBODY Stat Lab 11/17/19 02:43 Ordered HEPATITIS B SURF AB QUANT Stat Lab 11/17/19 02:43 Ordered Labs: Laboratory Tests 11/17/19 Range/Units 02:50 HIV-1 Ab Rapid Screen Non-reactive (NON-REACT.) Meds: Medications Discontinued Medications Generic Name Dose Route Start Last Admin Trade Name Matthieu PRN Reason Stop Dose Admin Baclofen 10 mg 11/17/19 03:39 11/17/19 03:43 Lioresal PO 11/17/19 03:40 10 mg ONETIME ONE Administration Departure - Departure Time of Disposition: 03:24 Disposition: Home, Self-Care 01 Clinical Impression: Exposure to blood, Left shoulder pain - Discharge Information *PRESCRIPTION DRUG MONITORING PROGRAM REVIEWED*: No *COPY OF PRESCRIPTION DRUG MONITORING REPORT IN PATIENT JULIA: No Instructions: Shoulder Pain, [id number] Referrals: PCP,None [Primary Care Provider] - Forms: ED Department Discharge Additional Instructions: For the blood exposure: Both yours and the patient's rapid HIV's were negative. Hep B panel is pending. You have previously been fully vaccinated against Hep B and your Hep B panel is pending also. No need to repeat Hep B vaccination, HIV, or tetanus prophylaxis. Your last tetanus shot was Apr 2019. For the shoulder strain: Take a regular dose of ibuprofen 600 mg with food every 6 hours for the next 5 days. Use ice for 20 minutes at a time on the shoulder. Use the baclofen up to three times daily for muscles spasms. If you are not better or still experiencing pain after 1 week, follow-up with orthopedics- Dr Russell sees patients on Tuesdays and [phone]). Call or return to the ED with any worsening of symptoms or questions. Sepsis Event Note (ED) - Evaluation Sepsis Screening Result: No Definite Risk - Focused Exam Vital Signs: Vital Signs Temp Pulse Resp BP Pulse Ox 11/17/19 02:53 98.4 F 90 16 130/81 96 - My Orders Last 24 Hours: My Active Orders 11/17/19 02:43 HBSAG SCREEN Stat HCV ANTIBODY Stat HEPATITIS B SURF AB QUANT Stat - Assessment/Plan Last 24 Hours: My Active Orders 11/17/19 02:43 HBSAG SCREEN Stat HCV ANTIBODY Stat HEPATITIS B SURF AB QUANT Stat Plan: discharge to home. Blood exposure tests pending. Baclofen prescribed for left shoulder muscle injury. Patient to follow-up with orthopedics in 1 week if not better. Patient is agreeable to plan.
[2019-11-17] MEDS ORDERED: Baclofen 10 MG Tab PO ONE (03:39)
[2019-11-18 09:12] LABS: HBSAG SCREEN Negative (Negative)
== END 2019-11-17 03:45 | disposition home or self-care (01) ==
LOC: JP.ED 02:19
DX: S60.511A Abrasion of right hand, initial encounter (principal); M25.512 Pain in left shoulder; Z77.21 Contact with and (suspected) exposure to potentially hazardous body fluids; F17.210 Nicotine dependence, cigarettes, uncomplicated; Z88.0 Allergy status to penicillin; Z88.1 Allergy status to other antibiotic agents; X58.XXXA Exposure to other specified factors, initial encounter; Y92.89 Other specified places as the place of occurrence of the external cause; Y99.0 Civilian activity done for income or pay
CPT/HCPCS: 36415; 86317; 86803; 87340; 87449; 99283; A9270

== ENCOUNTER 2022-10-31 17:44 | Emergency (ER) | payer BC ==
[2022-10-31 19:16] LABS: BASOPHILS ABSOLUTE AUTO 0.03 K/uL (0.00-0.10); BASOPHILS PERCENT AUTO 0.6 % (0.1-1.3); EOSINOPHILS ABSOLUTE AUTO 0.03 K/uL (0.00-0.40); EOSINOPHILS PERCENT AUTO 0.6 % (0.0-5.4); HEMATOCRIT 42.4 % (38.4-49.7); HEMOGLOBIN 14.6 g/dL (12.9-16.9); IMMATURE GRAN PERCENT AUTO 0.2 % (0.0-0.7); LYMPHOCYTES ABSOLUTE AUTO 1.39 K/uL (0.8-3.3); MEAN CORPUSCULAR HEMOGLOBIN 30.8 pg (31.6-35.5); MEAN CORPUSCULAR HGB CONC 34.4 g/dL (31.6-35.5); MEAN CORPUSCULAR VOLUME 89.5 fL (81.4-99.0); MONOCYTES ABSOLUTE AUTO 0.43 K/uL (0.20-0.90); NEUTROPHILS ABSOLUTE AUTO 2.91 K/uL (1.0-7.6); NEUTROPHILS PERCENT AUTO 60.6 % (40.0-78.1); PLATELET COUNT,PLT 201 K/uL (130-375); RED BLOOD CELL COUNT 4.74 M/uL (4.14-5.76); WHITE BLOOD CELL COUNT,WBC 4.8 K/uL (3.2-11.0)
[2022-10-31 19:17] LABS: IMMATURE GRAN ABSOLUTE AUTO 0.01 K/uL (0.00-0.23)
[2022-10-31 19:32] LABS: ANION GAP 6.3 mmol/L (5.0-14.0); CALCIUM 8.9 mg/dL (8.5-10.1); CREATININE 1.1 mg/dL (0.8-1.3); EST CRCL DRUG DOSING (CG) 86.59 mL/min; POTASSIUM,K 3.9 mmol/L (3.6-5.2)
[2022-10-31 20:41] VITALS: BP 109/61; PULSE 72
== END 2022-10-31 21:48 | disposition home or self-care (01) ==
LOC: JP.ED 17:44
DX: H81.10 Benign paroxysmal vertigo, unspecified ear (principal); Z88.0 Allergy status to penicillin; Z88.8 Allergy status to other drugs, medicaments and biological substances; Z86.16 Personal history of COVID-19
CPT/HCPCS: 36415; 80048; 85025; 93005; 99284

== ENCOUNTER 2023-03-03 21:23 | Emergency (ER) | payer BC ==
[2023-03-03 21:32] VITALS: BP 123/76; PULSE 53
[2023-03-03 22:02] LABS: BASOPHILS PERCENT AUTO 0.3 % (0.1-1.3); EOSINOPHILS ABSOLUTE AUTO 0.07 K/uL (0.00-0.40); EOSINOPHILS PERCENT AUTO 1.1 % (0.0-5.4); HEMATOCRIT 39.5 % (38.4-49.7); HEMOGLOBIN 13.6 g/dL (12.9-16.9); IMMATURE GRAN ABSOLUTE AUTO 0.03 K/uL (0.00-0.23); IMMATURE GRAN PERCENT AUTO 0.5 % (0.0-0.7); LYMPHOCYTES ABSOLUTE AUTO 1.71 K/uL (0.8-3.3); LYMPHOCYTES PERCENT AUTO 27.9 % (11.4-47.7); MEAN CORPUSCULAR HEMOGLOBIN 30.6 pg (31.6-35.5); MEAN CORPUSCULAR HGB CONC 34.4 g/dL (31.6-35.5); MEAN CORPUSCULAR VOLUME 88.8 fL (81.4-99.0); MONOCYTES ABSOLUTE AUTO 0.48 K/uL (0.20-0.90); MONOCYTES PERCENT AUTO 7.8 % (3.3-12.6); NEUTROPHILS ABSOLUTE AUTO 3.81 K/uL (1.0-7.6); NEUTROPHILS PERCENT AUTO 62.4 % (40.0-78.1); PLATELET COUNT,PLT 210 K/uL (130-375); RED BLOOD CELL COUNT 4.45 M/uL (4.14-5.76); WHITE BLOOD CELL COUNT,WBC 6.1 K/uL (3.2-11.0)
[2023-03-03 22:03] LABS: BASOPHILS ABSOLUTE AUTO 0.02 K/uL (0.00-0.10)
[2023-03-03 22:31] LABS: CORONAVIRUS COVID-19 NAA NEGATIVE (NEGATIVE); INFLUENZA A NAA NEGATIVE (NEGATIVE); INFLUENZA B NAA NEGATIVE (NEGATIVE); RESPIRATORY SYNCYTIAL VIR NAA NEGATIVE (NEGATIVE)
[2023-03-03 22:32] LABS: A/G RATIO 1.3 (1.2-2.2); ALANINE AMINOTRANSFERASE,ALT 8 U/L (12-78); ALBUMIN 3.8 g/dL (3.4-5.0); ALKALINE PHOSPHATASE 56 U/L (46-116); ANION GAP 8.8 mmol/L (5.0-14.0); ASPARTATE AMNIOTRANSFERASE,AST 16 U/L (15-37); BILIRUBIN TOTAL 0.3 mg/dL (0.2-1.0); BLOOD UREA NITROGEN,BUN 21 mg/dL (7-18); CALCIUM 8.5 mg/dL (8.5-10.1); CARBON DIOXIDE,CO2 27 mmol/L (21-32); CHLORIDE,CL 104 mmol/L (100-108); CREATININE 1.5 mg/dL (0.8-1.3); EST CRCL DRUG DOSING (CG) 60.67 mL/min; ESTIMATED GFR 63 mL/min (>60); GLUCOSE RANDOM 109 mg/dL (74-106); POTASSIUM,K 3.6 mmol/L (3.6-5.2); PROTEIN TOTAL,TP 6.7 g/dL (6.4-8.2); SODIUM,NA 140 mmol/L (140-148); TROPONIN I HIGH SENSITIVITY 4.2 pg/mL (<=60.3)
== END 2023-03-03 23:29 | disposition home or self-care (01) ==
LOC: JP.ED 21:23
DX: R00.1 Bradycardia, unspecified (principal); Z86.16 Personal history of COVID-19; Z88.0 Allergy status to penicillin; Z88.1 Allergy status to other antibiotic agents; Z20.822 Contact with and (suspected) exposure to COVID-19
CPT/HCPCS: 0241U; 36415; 80053; 84439; 84443; 84484; 85025; 93005; 93010; 99283; 99284

== ENCOUNTER 2023-05-28 18:14 | Emergency (ER) | payer BC, OTHER ==
[2023-05-28 19:24] LABS: BASOPHILS ABSOLUTE AUTO 0.05 K/uL (0.00-0.10); BASOPHILS PERCENT AUTO 0.6 % (0.1-1.3); EOSINOPHILS ABSOLUTE AUTO 0.11 K/uL (0.00-0.40); EOSINOPHILS PERCENT AUTO 1.3 % (0.0-5.4); HEMATOCRIT 42.4 % (38.4-49.7); HEMOGLOBIN 15.4 g/dL (12.9-16.9); IMMATURE GRAN ABSOLUTE AUTO 0.02 K/uL (0.00-0.23); IMMATURE GRAN PERCENT AUTO 0.2 % (0.0-0.7); LYMPHOCYTES ABSOLUTE AUTO 2.15 K/uL (0.8-3.3); LYMPHOCYTES PERCENT AUTO 26.3 % (11.4-47.7); MEAN CORPUSCULAR HEMOGLOBIN 30.9 pg (31.6-35.5); MEAN CORPUSCULAR HGB CONC 36.3 g/dL (31.6-35.5); MEAN CORPUSCULAR VOLUME 85.1 fL (81.4-99.0); MONOCYTES ABSOLUTE AUTO 0.61 K/uL (0.20-0.90); MONOCYTES PERCENT AUTO 7.5 % (3.3-12.6); NEUTROPHILS ABSOLUTE AUTO 5.24 K/uL (1.0-7.6); NEUTROPHILS PERCENT AUTO 64.1 % (40.0-78.1); PLATELET COUNT,PLT 209 K/uL (130-375); RED BLOOD CELL COUNT 4.98 M/uL (4.14-5.76); WHITE BLOOD CELL COUNT,WBC 8.2 K/uL (3.2-11.0)
[2023-05-28 19:44] LABS: CALCIUM 9.3 mg/dL (8.5-10.1); CREATININE 1.2 mg/dL (0.8-1.3); EST CRCL DRUG DOSING (CG) 84.71 mL/min; POTASSIUM,K 3.1 mmol/L (3.6-5.2); TROPONIN I HIGH SENSITIVITY 5.1 pg/mL (<=60.3)
[2023-05-28 19:45] LABS: ANION GAP 15.1 mmol/L (5.0-14.0)
[2023-05-28 20:00] LABS: A/G RATIO 1.4 (1.2-2.2); ALBUMIN 4.4 g/dL (3.4-5.0); BILIRUBIN DIRECT 0.1 mg/dL (0.0-0.2); BILIRUBIN INDIRECT 0.3; BILIRUBIN TOTAL 0.4 mg/dL (0.2-1.0); PROTEIN TOTAL,TP 7.5 g/dL (6.4-8.2)
[2023-05-28 20:16] VITALS: BP 114/78; PULSE 57
[2023-05-28] MEDS: Potassium Chloride 20 MEQ Tab.ER PO ONE (20:43)
== END 2023-05-28 21:43 | disposition home or self-care (01) ==
LOC: JP.ED 18:14
DX: Q67.6 Pectus excavatum (principal); Z88.0 Allergy status to penicillin; Z88.8 Allergy status to other drugs, medicaments and biological substances; Z86.16 Personal history of COVID-19; Z87.891 Personal history of nicotine dependence
CPT/HCPCS: 36415; 71045; 71045-26; 80048; 80076; 83690; 84484; 85025; 85379; 93005; 99284; 99285; A9270-GY